=== PATIENT | female | born 1955 | race Caucasian/White ===

== ENCOUNTER → 2020-12-14 | Outpatient (CLI) | payer MEDICARE, OTHER | LOC: KOH-I 13:10 | DX: M79.672 Pain in left foot (principal); M79.671 Pain in right foot | CPT/HCPCS: 73630 ==

== ENCOUNTER → 2021-05-06 | Outpatient (CLI) | payer MEDICARE, OTHER | LOC: KOH-I 14:45 | DX: M79.672 Pain in left foot (principal); M20.32 Hallux varus (acquired), left foot; M19.072 Primary osteoarthritis, left ankle and foot | CPT/HCPCS: 73630 ==